=== PATIENT | male | born 2005 | race Caucasian/White ===

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

== ENCOUNTER 2025-03-02 17:12 | Emergency (ER) | payer SELFPAY ==
[~2025-03-02] VITALS: Ht 180.3 cm; Wt 72.2 kg
--- NOTE | 2025-03-02 18:29 | ED.PDOC ---
History of Present Illness HPI Comments 20 y/o M presents with c/c of right shoulder pain and deformity. Patient reports on history of right shoulder dislocations and dislocating said shoulder, again, earlier, today, from a mechanical fall. No reported additional injuries or acute symptoms. Limited ROM. 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 09/19/22 Ibuprofen (Ibuprofen) 800 Mg Tab, 1 TAB PO TID, #30 TAB Prov:GRADY HAIRSTON PA 07/10/22 Ibuprofen Micronized (Ibuprofen) 800 Mg Tab, 800 MG PO TIDP PRN, #20 TAB Prov:XI CAMP PAC 04/12/22 Information Source: Patient Mode of Arrival: Ambulatory Severity: Moderate Timing: Hours Duration: Since onset Prehospital treatment: None Past Medical History PAST MEDICAL HISTORY: Denies Surgical History: Denies all surgeries Family History Family History: Reviewed,noncontributory to illness Social History Smoker: Other Alcohol: Occasionally Drugs: Marijuana Lives In: Home All Other Systems: Reviewed and Negative (As per HPI) Physical Exam General Appearance: No Apparent Distress, Normal HEENT: Normal ENT Inspection, Pharynx Normal, TMs Normal Neck: Full Range of Motion, Non-Tender, Normal, Normal Inspection Respiratory: Chest Non-Tender, Lungs Clear, No Accessory Muscle Use, No Respiratory Distress, Normal Breath Sounds Cardiovascular: No Edema, No JVD, No Murmur, No Gallop, Normal Peripheral Pulses, Regular Rate/Rhythm Breast Exam: Deferred Gastrointestinal: No Organomegaly, Non Tender, No Pulsatile Mass, Normal Bowel Sounds, Soft Genitalia: Deferred Pelvic: Deferred Rectal: Deferred Extremities: Decreased range of motion, No calf tenderness, Normal capillary refill, Non-tender, No pedal edema, Tender (right shoulder tenderness ), Other (right shoulder deformity) Musculoskeletal : Apperance: Normal Neurologic: Alert, 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 Was a procedure done?: Yes Sedation Sedation?: Yes Informed consent obtained: Yes Sedation start time: 20:45 Sedation end time: 21:00 Sedation total time: 15 minutes Reduction Indication: Dislocation Sedation: Consents obtained, Sedation as ordered (Ketamine ) Intra-articular anesthetic rhonda: No Post-reduction x-ray show: Reduction, Good Alignment Informed consent obtained: Yes Risks/benefits/alt described: Yes Differential Dx Considerations may include: dislocation, fracture, sprain, strain, contusion, among others X-Ray, Labs, Meds, VS Vital Signs Date Time Temp Pulse Resp B/P (MAP) Pulse Ox O2 Delivery O2 Flow Rate FiO2 03/02/25 22:50 97.8 72 16 115/79 (91) 97 97.8 03/02/25 21:06 114 17 163/117 (132) 97 03/02/25 21:03 98 10 155/113 (127) 96 03/02/25 21:00 76 17 99 2.0 28 115 18 99 114 98 03/02/25 20:51 83 22 120/81 (94) 96 03/02/25 19:30 68 21 97 Room Air* 0 21 03/02/25 19:00 68 21 120/78 (92) 97 03/02/25 18:52 86 22 97 Room Air* 0 21 03/02/25 18:52 98.4 86 22 122/78 (93) 97 98.4 03/02/25 17:13 100.0 98 16 136/86 96 100.0 Current Medications Medications (Trade) Dose Ordered Sig/Angelica Route Start Time Stop Time Status Last Admin Ketamine HCl (Ketalar) 150 mg ONCE ONCE IV 03/02/25 18:15 03/02/25 18:16 DC 03/02/25 21:[address] [address] Ph: [phone] DIAGNOSTIC IMAGING Diagnostic Imaging Report : [id number] Signed PATIENT: ANDERSON CROSS ACCT: [id number] UNIT: [id number] : 2005 LOC: ER ROOM / BED: / AGE / SEX: 20 / M ADM STATUS: REG ER SERVICE 1755 ORDERING PHYSICIAN: SALBADOR LUCAS MD PROCEDURE(s): RSHD2 - R SHOULDER 2+ VIEW XRAY REASON: pain, snowboarding accident ORDER NUMBER(s): [id number], ACCESSION NUMBER(s): [id number] CLINICAL INDICATION: pain, snowboarding accident TECHNIQUE: 3 radiographic views of the anterior dislocation of the right humerus is noted. were obtained. COMPARISON: XY R SHOULDER 1V XRAY on DOS: 04/24/23, XY R SHOULDER 2+ VIEW XRAY on DOS: 04/16/23, XY R SHOULDER 1V XRAY on DOS: 07/10/22 FINDINGS/IMPRESSION: Anterior dislocation of the right humerus. There may be a depression to the greater tuberosity of the proximal humerus suggesting Hill-Sachs Deformity. ATED BY: VARINDER IVORY Jr., DO DICTATED DATE/TIME: 03/02/251910 SIGNED BY: VARINDER IVORY Jr., SIGNED DATE/TIME: 03/02/251910 CC: [place] [address] Ph: [phone] DIAGNOSTIC IMAGING Diagnostic Imaging Report : [id number] Signed PATIENT: ANDERSON CROSS ACCT: [id number] UNIT: [id number] : 2005 LOC: ER ROOM / BED: / AGE / SEX: 20 / M ADM STATUS: REG ER SERVICE 03 ORDERING PHYSICIAN: SALBADOR LUCAS MD PROCEDURE(s): RSHD2 - R SHOULDER 2+ VIEW XRAY REASON: right shoulder reduction ORDER NUMBER(s): [id number], ACCESSION NUMBER(s): [id number] CLINICAL INDICATION: right shoulder reduction TECHNIQUE: 3 radiographic views of the right shoulder were obtained. COMPARISON: XY R SHOULDER 2+ VIEW XRAY on DOS: 03/02/25, XY R SHOULDER 1V XRAY on DOS: 04/24/23, XY R SHOULDER 2+ VIEW XRAY on DOS: 04/16/23 FINDINGS/IMPRESSION: Deformity to the greater tuberosity of the proximal right humerus may represent a Hill-Sachs deformity. Bony alignment of the humerus is normal. ATED BY: VARINDER IVORY Jr., DO DICTATED DATE/TIME: 03/02/252131 SIGNED BY: VARINDER IVORY Jr., SIGNED DATE/TIME: 03/02/252131 CC: Time of 1ST Reevaluation: 18:20 Reevaluation 1ST: Unchanged Patient Education/Counseling: Diagnosis, Treatment, Need For Follow Up Family Education/Counseling: Diagnosis, Treatment, Need For Follow Up SEPSIS Sepsis Screen Date sepsis recognized/suspect: Mar 02, 2025 Time Sepsis recognized/suspect: 1716 Recent Procedure: No On Antibiotic Therapy: No Respiratory Rate >20: No Heart Rate >90: Yes Temp<36 C (96.8 F) or >38.3 C: No SBP <90 or MAP <65 mmHG: No New Acute Mental Status Change: No Is the patient on CPAP, BIPAP,: No Physician Orders R Shoulder 2+ View Xray (03/02/25 17:55) Sedation (03/02/25 ) Heplock Iv (03/02/25 ) R Shoulder 2+ View Xray (03/02/25 21:04) Vital Signs Date Time Temp Pulse Resp B/P (MAP) Pulse Ox O2 Delivery O2 Flow Rate FiO2 03/02/25 22:50 97.8 72 16 115/79 (91) 97 97.8 03/02/25 21:06 114 17 163/117 (132) 97 03/02/25 21:03 98 10 155/113 (127) 96 03/02/25 21:00 76 17 99 2.0 28 115 18 99 114 98 03/02/25 20:51 83 22 120/81 (94) 96 03/02/25 19:30 68 21 97 Room Air* 0 03/02/25 19:00 68 21 120/78 (92) 97 03/02/25 18:52 86 22 97 Room Air* 0 03/02/25 18:52 98.4 86 22 122/78 (93) 97 98.4 03/02/25 17:13 100.0 98 16 136/86 96 100.0 Medications Medications Dose Ordered Sig/Angelica Route Start Time Stop Time Status Last Admin Dose Admin Ketamine HCl 150 mg ONCE ONCE IV 03/02/25 18:15 03/02/25 18:16 DC 03/02/25 21:40 Departure 1 Departure Time of Disposition: 20:00 Impression: Primary Impression: Dislocation of shoulder, inferior, right, closed Disposition: HOME / SELF CARE / HOMELESS Condition: Stable Discharged With: Self Critical Care Note Critical Care Time?: No Stability Stability form required: No Heart Score Heart Score: Heart Score Response (Comments) Value History N/A 0 EKG N/A 0 Age N/A 0 Risk Factors N/A 0 Troponin N/A 0 Total 0 I personally scribed for SALBADOR LUCAS MD ([email or web address]) on 03/02/25 at 18:29. Electronically submitted by Jamal Maldonado ([email or web address]). I personally scribed for SALBADOR LUCAS MD ([email or web address]) on 03/02/25 at 19:16. Electronically submitted by Jamal Maldonado ([email or web address]). I personally scribed for SALBADOR LUCAS MD ([email or web address]) on 03/02/25 at 21:07. Electronically submitted by Jamal Maldonado ([email or web address]). I personally scribed for SALBADOR LUCAS MD ([email or web address]) on 03/02/25 at 21:40. Electronically submitted by Jamal Maldonado ([email or web address]). SALBADOR LUCAS MD Mar 02, 2025 18:29
[2025-03-02 18:52] VITALS: PULSE 86; RESP 22; O2SAT 97
--- NOTE | 2025-03-02 19:13 | DVH ---
CLINICAL INDICATION: pain, snowboarding accident TECHNIQUE: 3 radiographic views of the anterior dislocation of the right humerus is noted. were obtained. COMPARISON: XY R SHOULDER 1V XRAY on DOS: 04/24/23, XY R SHOULDER 2+ VIEW XRAY on DOS: 04/16/23, XY R SHOULDER 1V XRAY on DOS: 07/10/22 FINDINGS/IMPRESSION: Anterior dislocation of the right humerus. There may be a depression to the greater tuberosity of the proximal humerus suggesting Hill-Sachs Deformity.
[2025-03-02 19:30] VITALS: PULSE 68; RESP 21; O2SAT 97
--- NOTE | 2025-03-02 21:35 | DVH ---
CLINICAL INDICATION: right shoulder reduction TECHNIQUE: 3 radiographic views of the right shoulder were obtained. COMPARISON: XY R SHOULDER 2+ VIEW XRAY on DOS: 03/02/25, XY R SHOULDER 1V XRAY on DOS: 04/24/23, XY R SHOULDER 2+ VIEW XRAY on DOS: 04/16/23 FINDINGS/IMPRESSION: Deformity to the greater tuberosity of the proximal right humerus may represent a Hill-Sachs deformity. Bony alignment of the humerus is normal.
[2025-03-02] MEDS: KETAMINE 50mg/ML 1ml syringe IV ONE (21:40)
[2025-03-02 22:50] VITALS: BP 115/79; PULSE 72; RESP 16; TEMP 97.8; O2SAT 97
== END 2025-03-02 23:07 | disposition home or self-care (01) ==
LOC: ER 17:12
DX: S43.004A Unspecified dislocation of right shoulder joint, initial encounter (principal); F17.200 Nicotine dependence, unspecified, uncomplicated; W19.XXXA Unspecified fall, initial encounter; Y93.23 Activity, snow (alpine) (downhill) skiing, snowboarding, sledding, tobogganing and snow tubing; Y92.89 Other specified places as the place of occurrence of the external cause; Y99.8 Other external cause status
CPT/HCPCS: 23650; 73030; 99152